=== PATIENT | male | born 1960 | race Caucasian/White ===

== ENCOUNTER → 2017-06-24 | Outpatient (CLI) | payer MEDICARE ==
[2017-06-24 12:23] LABS: ADD MAN DIFF? NO
[2017-06-24 12:28] LABS: BASO # 0.1 x10^3/uL (0.0-0.2); BASO % 1 % (0-3); EOS # 0.1 x10^3/uL (0.0-0.7); EOS % 1 % (0-3); HEMATOCRIT 45.8 % (39.0-53.0); HEMOGLOBIN 15.9 g/dL (13.0-17.5); LYMPH # 2.2 x10^3/uL (1.0-4.8); LYMPH % 21 % (24-48); MEAN CORPUSCULAR HEMOGLOBIN 36 pg (25-35); MEAN CORPUSCULAR HGB CONC 35 g/dL (31-37); MEAN CORPUSCULAR VOLUME 104 fL (79-100); MONO # 0.8 x10^3/uL (0.0-1.1); MONO % 8 % (0-9); NEUT # 7.5 x10^3uL (1.8-7.7); NEUT % 70 % (31-73); PLATELET COUNT 213 x10^3/uL (140-400); RED BLOOD COUNT 4.41 x10^6/uL (4.30-5.70); WHITE BLOOD COUNT 10.7 x10^3/uL (4.0-11.0)
[2017-06-24 12:58] LABS: ALBUMIN 3.4 g/dL (3.4-5.0); ALBUMIN/GLOBULIN RATIO 0.9 (1.0-1.7); ALK PHOS 81 U/L (46-116); ALT (SGPT) 50 U/L (16-63); ANION GAP 13 (6-14); AST (SGOT) 26 U/L (15-37); BLOOD UREA NITROGEN 19 mg/dL (8-26); BUN/CREATININE RATIO 15 (6-20); CARBON DIOXIDE 22 mmol/L (21-32); CHLORIDE 99 mmol/L (98-107); CREATININE 1.3 mg/dL (0.7-1.3); GFR 57.3; GLUCOSE 255 mg/dL (70-99); POTASSIUM 4.2 mmol/L (3.5-5.1); SODIUM 134 mmol/L (136-145); TOTAL BILIRUBIN 0.3 mg/dL (0.2-1.0); TOTAL PROTEIN 7.3 g/dL (6.4-8.2)
[2017-06-24 13:02] LABS: PROSTATE SPECIFIC ANTIGEN 2.62 ng/mL (0.00-4.00)
[2017-06-24 20:10] LABS: FSH 13.1 mIU/mL (1.5-12.4); LUTEINIZING HORMONE 17.2 mIU/mL (1.7-8.6)
[2017-06-24 20:10] LABS: ESTRADIOL LEVEL 27.8 pg/mL (7.6-42.6)
== END | disposition home or self-care (01) ==
LOC: LAB 12:05
DX: Z12.5 Encounter for screening for malignant neoplasm of prostate (principal); E29.1 Testicular hypofunction; Z57.2 Occupational exposure to dust
CPT/HCPCS: 36415; 80053; 82670; 83001; 83002; 85025; G0103

== ENCOUNTER 2017-12-19 09:15 | Emergency (ER) | payer MEDICARE ==
[~2017-12-19] VITALS: Ht 188 cm; Wt 117.9 kg
[~2017-12-19 09:15] MED LIST: ATOR10TA PO; CLOZ100T7 PO; METF500T5 PO; PIOG15TA42 PO
[2017-12-19 09:20] VITALS: BP 152/85
--- NOTE | 2017-12-19 09:42 | PHYS DOC ---
Past Medical History Past Medical History: Diabetes-Type II, High Cholesterol, Hypertension, Other Additional Past Medical Histor: MENTAL ILLNESS Past Surgical History: No Surgical History Alcohol Use: None Drug Use: None Adult General Chief Complaint Chief Complaint: SWALLOWED FORIEGN BODY HPI HPI Patient is a 57 year old [male presenting with an esophageal foreign body. He said that he had some hot dog at 4 AM he felt it get stuck that he ate some cookies and thus got stuck and he had some yogurt and some banana and that also got stuck. He is tolerating lemonade just fine. He said that he had an esophageal what sounds most likely like a esophageal dilation at [employer] in july Review of Systems Review of Systems Constitutional: Denies fever or chills [] Eyes: Denies change in visual acuity, redness, or eye pain [] Cardiovascular: No additional information not addressed in HPI [] GI: Denies abdominal pain, , Neurologic: Denies headache, focal weakness or sensory changes [] Endocrine: Denies polyuria or polydipsia [] All other systems were reviewed and found to be within normal limits, except as documented in this note. Current Medications Current Medications Current Medications Medications (Trade) Dose Ordered Sig/Duane Start Time Stop Time Status Last Admin Dose Admin Glucagon (Glucagen) 1 mg 1X ONCE 12/19/17 10:00 12/19/17 10:01 DC 12/19/17 10:01 1 MG Lorazepam (Ativan) 1 mg 1X ONCE 12/19/17 10:00 12/19/17 10:01 DC 12/19/17 09:58 1 MG Ondansetron HCl (Zofran) 4 mg 1X ONCE 12/19/17 10:00 12/19/17 10:01 DC 12/19/17 09:55 4 MG Allergies Allergies Allergies Coded Allergies Type Severity Reaction Last Updated Verified Antihistamines - Alkylamine Allergy Intermediate 10/02/14 No Physical Exam Physical Exam Constitutional: Well developed, well nourished, no acute distress, non-toxic appearance. [] HENT: Normocephalic, atraumatic, bilateral external ears normal, oropharynx moist, no oral exudates, nose normal. [] Eyes: PERRLA, EOMI, conjunctiva normal, no discharge. [] Neck: Normal range of motion, no tenderness, supple, no stridor. [] Pulmonary: Normal respiratory effort no increased work of breathing no obvious chest wall trauma Abdomen: Bowel sounds normal, soft, no tenderness, no masses, no pulsatile masses. [] Skin: Warm, dry, no erythema, no rash. [] Back: No tenderness, no CVA tenderness. [] Extremities: No tenderness, no cyanosis, no clubbing, ROM intact, no edema. [] Neurologic: Alert and oriented X 3, normal motor function, normal sensory function, no focal deficits noted. [] Psychologic blunted affect[] Current Patient Data Vital Signs Vital Signs Date Time Temp Pulse Resp B/P (MAP) Pulse Ox O2 Delivery O2 Flow Rate FiO2 12/19/17 09:20 98.3 98 18 152/85 (107) 96 Room Air 98.3 Lab Values Laboratory Tests Test 12/19/17 09:43 White Blood Count 10.4 x10^3/uL (4.0-11.0) Red Blood Count 4.72 x10^6/uL (4.30-5.70) Hemoglobin 17.0 g/dL (13.0-17.5) Hematocrit 48.4 % (39.0-53.0) Mean Corpuscular Volume 103 fL (79-100) H Mean Corpuscular Hemoglobin 36 pg (25-35) H Mean Corpuscular Hemoglobin Concent 35 g/dL (31-37) Red Cell Distribution Width 13.5 % (11.5-14.5) Platelet Count 264 x10^3/uL (140-400) Neutrophils (%) (Auto) 70 % (31-73) Lymphocytes (%) (Auto) 22 % (24-48) L Monocytes (%) (Auto) 7 % (0-9) Eosinophils (%) (Auto) 1 % (0-3) Basophils (%) (Auto) 1 % (0-3) Neutrophils # (Auto) 7.2 x10^3uL (1.8-7.7) Lymphocytes # (Auto) 2.2 x10^3/uL (1.0-4.8) Monocytes # (Auto) 0.7 x10^3/uL (0.0-1.1) Eosinophils # (Auto) 0.1 x10^3/uL (0.0-0.7) Basophils # (Auto) 0.1 x10^3/uL (0.0-0.2) Prothrombin Time 12.2 SEC (11.7-14.0) Prothrombin Time INR 1.0 (0.8-1.1) Sodium Level 131 mmol/L (136-145) L Potassium Level 4.6 mmol/L (3.5-5.1) Chloride Level 96 mmol/L (98-107) L Carbon Dioxide Level 29 mmol/L (21-32) Anion Gap 6 (6-14) Blood Urea Nitrogen 19 mg/dL (8-26) Creatinine 1.2 mg/dL (0.7-1.3) Estimated GFR (Cockcroft-Gault) 62.6 BUN/Creatinine Ratio 16 (6-20) Glucose Level 219 mg/dL (70-99) H Calcium Level 9.6 mg/dL (8.5-10.1) Total Bilirubin 0.3 mg/dL (0.2-1.0) Aspartate Amino Transferase (AST) 45 U/L (15-37) H Alanine Aminotransferase (ALT) 100 U/L (16-63) H Alkaline Phosphatase 80 U/L (46-116) Total Protein 6.9 g/dL (6.4-8.2) Albumin 3.5 g/dL (3.4-5.0) Albumin/Globulin Ratio 1.0 (1.0-1.7) Laboratory Tests 12/19/17 09:43 Laboratory Tests 12/19/17 09:43 EKG EKG [] Radiology/Procedures Radiology/Procedures [] Course & Med Decision Making Course & Med Decision Making Pertinent Labs and Imaging studies reviewed. (See chart for details) []57-year-old male with a prior history of apparently some sort of esophageal procedure back in July sounds like maybe a dilation but it was done at an outside facility also psychiatric history who is presenting with chief complaint of he feels like a hot dog was stuck in his esophagus however he did also subsequently it yogurt and banana and he has been tolerating liquids. In the emergency room he was given glucagon and Zofran and a milligram of Ativan and he said the sensation went away he is able to take by mouth liquids he will be discharged in stable condition he was advised to follow-up with his primary GI team for further evaluation. He was counseled on dietary considerations including soft diet for the next couple of days Dragon Disclaimer Victoriano Disclaimer This electronic medical record was generated, in whole or in part, using a voice recognition dictation system. Departure Departure Impression: Primary Impression: Esophageal foreign body Disposition: 01 HOME, SELF-CARE Condition: STABLE Referrals: JAIME MONACO MD (PCP) FRANK TAVERA MD Dec 19, 2017 09:42
[2017-12-19 09:56] LABS: BASO # 0.1 x10^3/uL (0.0-0.2); BASO % 1 % (0-3); EOS # 0.1 x10^3/uL (0.0-0.7); EOS % 1 % (0-3); HEMATOCRIT 48.4 % (39.0-53.0); LYMPH # 2.2 x10^3/uL (1.0-4.8); LYMPH % 22 % (24-48); MEAN CORPUSCULAR HEMOGLOBIN 36 pg (25-35); MEAN CORPUSCULAR HGB CONC 35 g/dL (31-37); MEAN CORPUSCULAR VOLUME 103 fL (79-100); MONO # 0.7 x10^3/uL (0.0-1.1); MONO % 7 % (0-9); NEUT # 7.2 x10^3uL (1.8-7.7); NEUT % 70 % (31-73); PLATELET COUNT 264 x10^3/uL (140-400); RED BLOOD COUNT 4.72 x10^6/uL (4.30-5.70); RED CELL DISTRIBUTION WIDTH 13.5 % (11.5-14.5); WHITE BLOOD COUNT 10.4 x10^3/uL (4.0-11.0)
[2017-12-19] MEDS ORDERED: GLUCAGON,HUMAN RECOMBINANT 1 MG/ML VIAL. IV ONE (10:00)
[2017-12-19] MEDS ORDERED: ONDANSETRON PF 4 MG/2 ML VIAL. IV ONE (10:00)
[2017-12-19 10:05] LABS: PROTHROMBIN TIME PATIENT 12.2 SEC (11.7-14.0)
[2017-12-19 10:09] LABS: CALCIUM 9.6 mg/dL (8.5-10.1); CREATININE 1.2 mg/dL (0.7-1.3); GFR 62.6; POTASSIUM 4.6 mmol/L (3.5-5.1)
[2017-12-19 10:15] LABS: ALBUMIN 3.5 g/dL (3.4-5.0); TOTAL BILIRUBIN 0.3 mg/dL (0.2-1.0); TOTAL PROTEIN 6.9 g/dL (6.4-8.2)
== END 2017-12-19 11:03 | disposition home or self-care (01) ==
LOC: ER 09:15
DX: T18.128A Food in esophagus causing other injury, initial encounter (principal); E11.9 Type 2 diabetes mellitus without complications; E78.00 Pure hypercholesterolemia, unspecified; I10 Essential (primary) hypertension; Z88.8 Allergy status to other drugs, medicaments and biological substances; X58.XXXA Exposure to other specified factors, initial encounter; Y93.89 Activity, other specified; Y92.89 Other specified places as the place of occurrence of the external cause; Y99.8 Other external cause status
CPT/HCPCS: 36415; 80053; 85025; 85610; 96374; 96375; J1610; J2060; J2405; 99284-25

== ENCOUNTER 2017-12-20 01:36 | Emergency (ER) | payer MEDICARE ==
[~2017-12-20] VITALS: Ht 188 cm; Wt 117.9 kg
[2017-12-20 01:50] VITALS: BP 158/78
--- NOTE | 2017-12-20 02:29 | PHYS DOC ---
Past Medical History Past Medical History: Diabetes-Type II, High Cholesterol, Hypertension, Other Additional Past Medical Histor: MENTAL ILLNESS Past Surgical History: No Surgical History Alcohol Use: None Drug Use: None Adult General Chief Complaint Chief Complaint: DIFFICULTY SWALLOWING HPI HPI Patient is a 57-year-old male who presents with report that he thinks that he had some food stuck in his esophagus. Patient was eating Rice Krispies at about 1:00 this morning and states it feels like it is stuck. Patient has not tried to eat or drink anything since. Patient does indicate he has a history of esophageal food bolus being toxic and has had to have endoscopy in the past. He denies any chest pain or shortness of breath. He also denies any nausea or vomiting. Review of Systems Review of Systems Constitutional: Denies fever or chills [] Respiratory: Denies cough or shortness of breath [] Cardiovascular: Denies chest pain[] GI: Reports difficulty swallowing[] All other systems were reviewed and found to be within normal limits, except as documented in this note. Allergies Allergies Allergies Coded Allergies Type Severity Reaction Last Updated Verified Antihistamines - Alkylamine Allergy Intermediate 10/02/14 No Physical Exam Physical Exam Constitutional: Well developed, well nourished, no acute distress, non-toxic appearance. [] HENT: Normocephalic, atraumatic, bilateral external ears normal, oropharynx moist, no oral exudates, nose normal. [] Eyes: PERRLA, EOMI, conjunctiva normal, no discharge. [] Neck: Normal range of motion, no tenderness, supple, no stridor. [] Cardiovascular:Heart rate regular rhythm [] Lungs & Thorax: Bilateral breath sounds clear to auscultation [] Abdomen: Bowel sounds normal, soft, no tenderness. [] Skin: Warm, dry, no erythema, no rash. [] EKG EKG [] Radiology/Procedures Radiology/Procedures [] Course & Med Decision Making Course & Med Decision Making Pertinent Labs and Imaging studies reviewed. (See chart for details) Patient given Diet Coke and was able to swallow entire can of diet Coke without difficulty. Dragon Disclaimer Dragon Disclaimer This electronic medical record was generated, in whole or in part, using a voice recognition dictation system. Departure Departure Impression: Primary Impression: Difficulty swallowing Disposition: 01 HOME, SELF-CARE Condition: STABLE Referrals: TREVER URENA MD (PCP) Patient Instructions: Dysphagia Additional Instructions: Follow-up with your primary care provider in the next few days. Problem Qualifiers Primary Impression: Difficulty swallowing Dysphagia type: unspecified Qualified Codes: R13.10 - Dysphagia, unspecified JOSHUA DOUGLASS Jr. DO Dec 20, 2017 02:29
[2017-12-21] MEDS ORDERED: ZIPR80CA2 PO (03:47)
[2017-12-21] MEDS ORDERED: LISI10TA2 PO (03:47)
[2017-12-21] MEDS ORDERED: TAMS0.4C97 PO (03:47)
[2017-12-21] MEDS ORDERED: GLIM4TAB2 PO (03:47)
== END 2017-12-20 02:35 | disposition home or self-care (01) ==
LOC: ER 01:36
DX: T18.128A Food in esophagus causing other injury, initial encounter (principal); R13.10 Dysphagia, unspecified; E78.00 Pure hypercholesterolemia, unspecified; I10 Essential (primary) hypertension; E11.9 Type 2 diabetes mellitus without complications; Z88.8 Allergy status to other drugs, medicaments and biological substances; X58.XXXA Exposure to other specified factors, initial encounter; Y93.89 Activity, other specified; Y92.89 Other specified places as the place of occurrence of the external cause; Y99.8 Other external cause status
CPT/HCPCS: 99281

== ENCOUNTER 2017-12-20 07:29 | Emergency (ER) | payer MEDICARE ==
[2017-12-20 01:50] VITALS: BP 158/78
[2017-12-21] MEDS ORDERED: TAMS0.4C97 PO (03:47)
[2017-12-21] MEDS ORDERED: ZIPR80CA2 PO (03:47)
[2017-12-21] MEDS ORDERED: LISI10TA2 PO (03:47)
[2017-12-21] MEDS ORDERED: GLIM4TAB2 PO (03:47)
== END 2017-12-20 07:42 | disposition left against medical advice (07) ==
LOC: ER 07:29
DX: T17.908A Unspecified foreign body in respiratory tract, part unspecified causing other injury, initial encounter (principal); Z53.21 Procedure and treatment not carried out due to patient leaving prior to being seen by health care provider; X58.XXXA Exposure to other specified factors, initial encounter; Y93.89 Activity, other specified; Y92.89 Other specified places as the place of occurrence of the external cause; Y99.8 Other external cause status

== ENCOUNTER 2017-12-20 08:27 | Emergency (ER) | payer MEDICARE ==
[~2017-12-20] VITALS: Ht 177.8 cm; Wt 117.9 kg
[2017-12-20 09:15] VITALS: BP 137/71
--- NOTE | 2017-12-20 09:58 | PHYS DOC ---
Past Medical History Past Medical History: Bipolar, Diabetes-Type II, High Cholesterol, Hypertension , Other Additional Past Medical Histor: MENTAL ILLNESS Past Surgical History: No Surgical History Alcohol Use: None Drug Use: None Adult General Chief Complaint Chief Complaint: ANXIETY/PANIC ATTACK HPI HPI 57-year-old male returns to ER with complaints of concerns he has hot dog stuck in his throat. Patient was seen in the ER yesterday for possible food bolus and was able to drink without difficulty. Patient states he ate last night and again this morning. Patient states he had cereal and pizza today and was able to eat the pizza without any nausea or vomiting. Patient has history of bipolar and autism and during exam changes his story as to symptoms bringing him to the ER. Patient discusses his acid reflux medicine not working for him as well as feeling he has a hot dog stuck in his throat from yesterday. Patient denies any shortness of air, chest pain, or chest tightness. He denies any vomiting episodes today following meals. Pt states he was able to take his morning medications swallowing the pills without vomiting afterwards. During initial exam pt is speaking in full sentences w/no resp. difficulty. Pt has no pooling of secretions and is swallowing without difficultly. Review of Systems Review of Systems Constitutional: Denies fever or chills [] Eyes: Denies change in visual acuity, redness, or eye pain [] HENT: Reports feeling "hot dog is stuck in throat" Respiratory: Denies cough or shortness of breath [] Cardiovascular: Denies CP GI: Denies abdominal pain, nausea, vomiting, or diarrhea [] Musculoskeletal: Denies neck pain Integument: Denies swelling Neurologic: Denies headache/dizziness Psych: Reports feeling anxious All other systems were reviewed and found to be within normal limits, except as documented in this note. Current Medications Current Medications Current Medications Medications (Trade) Dose Ordered Sig/Duane Start Time Stop Time Status Last Admin Dose Admin Lorazepam (Ativan) 1 mg 1X ONCE 12/20/17 10:45 12/20/17 10:46 DC 12/20/17 10:44 1 MG Multi-Ingredient Mouthwash/Gargle (Gi Cocktail) 20 ml 1X ONCE 12/20/17 10:00 12/20/17 10:01 DC 12/20/17 10:04 20 ML Allergies Allergies Allergies Coded Allergies Type Severity Reaction Last Updated Verified Antihistamines - Alkylamine Allergy Intermediate 10/02/14 No Physical Exam Physical Exam Constitutional: Well developed, well nourished, no acute distress, non-toxic appearance.Speaking in full sentences- clear speech HENT: Normocephalic, atraumatic, bilateral ears normal, mucous membranes pink/ moist, no oral exudates, nose normal. Airway patent with no FB found in throat. No crepitus/gross adenopathy Eyes: PERRLA, conjunctiva normal, no discharge. [] Neck: Normal range of motion, no tenderness, supple Cardiovascular:Heart rate regular rhythm, no murmur [] Lungs & Thorax: Bilateral breath sounds clear to auscultation. Resp. equal/ nonlabored Abdomen: Bowel sounds normal, soft, no tenderness Skin: Warm, dry, no erythema, no rash. [] Back: No tenderness, no CVA tenderness. [] Extremities: No tenderness, no cyanosis, no clubbing, ROM intact, no edema. [] Neurologic: Alert and oriented X 3, normal motor function, normal sensory function, no focal deficits noted. [] Psychologic: Anxious when discussing concerns for hot dog being stuck in his throat- no uncontrollable behavior- explanation of events at times hard to follow with pt changing his story as to what he had eaten yest/today and then reporting he had been eating/swallowing Current Patient Data Vital Signs Vital Signs Date Time Temp Pulse Resp B/P (MAP) Pulse Ox O2 Delivery O2 Flow Rate FiO2 12/20/17 09:15 99.3 106 18 137/71 (93) 96 Room Air 99.3 EKG EKG [] Radiology/Procedures Radiology/Procedures [] Course & Med Decision Making Course & Med Decision Making 1039: RN reports pt is requesting discharge home as he feels his symptoms have improved with IM ativan and GI cocktail. Pt has been drinking while in ER with no pooling of secretions or N/V. Pt has been speaking in full sentences with no resp. distress. Pt advised on need for f/u with GI doctor. Education provided on s&s to return to ER for. Discharge instructions were discussed. Pt advised on need to f/u with psychologist and GI doctor for further care. Discharge instructions discussed with education on s&s to return to ER for. Victoriano Disclaimer Dragflorian Disclaimer This electronic medical record was generated, in whole or in part, using a voice recognition dictation system. Departure Departure Impression: Primary Impression: Anxiety Additional Impressions: Throat pain Acid reflux Disposition: 01 HOME, SELF-CARE Condition: STABLE Referrals: TREVER URENA MD (PCP) Patient Instructions: Anxiety and Panic Attacks, Adel-tz-Glus, Gastroesophageal Reflux Disease, Adult Additional Instructions: You have been eating and drinking with no vomiting or pooling of secretions. With your continued feeling of something in your throat you should have a follow -up with your Gastrointestinal (GI) doctor to further evaluate your symptoms. Problem Qualifiers DAWN PALMER APRN Dec 20, 2017 09:58
[2017-12-20] MEDS ORDERED: LIDO:MAALOX 1:1 20 ML SINGLE DOSE. SWSW ONE (10:00)
[2017-12-21] MEDS ORDERED: TAMS0.4C97 PO (03:47)
[2017-12-21] MEDS ORDERED: LISI10TA2 PO (03:47)
[2017-12-21] MEDS ORDERED: ZIPR80CA2 PO (03:47)
[2017-12-21] MEDS ORDERED: GLIM4TAB2 PO (03:47)
== END 2017-12-20 11:00 | disposition home or self-care (01) ==
LOC: ER 08:27
DX: F41.9 Anxiety disorder, unspecified (principal); R07.0 Pain in throat; K21.9 Gastro-esophageal reflux disease without esophagitis; E11.9 Type 2 diabetes mellitus without complications; F31.9 Bipolar disorder, unspecified; E78.00 Pure hypercholesterolemia, unspecified; I10 Essential (primary) hypertension; Z88.8 Allergy status to other drugs, medicaments and biological substances
CPT/HCPCS: 96372; 99284; J2060

== ENCOUNTER 2017-12-21 01:32 | Observation (INO) | payer MEDICARE ==
[~2017-12-21] VITALS: Ht 188 cm; Wt 125.0 kg
--- NOTE | 2017-12-21 01:48 | PHYS DOC ---
Past Medical History Past Medical History: Bipolar, Diabetes-Type II, High Cholesterol, Hypertension , Other Additional Past Medical Histor: MENTAL ILLNESS Past Surgical History: No Surgical History Alcohol Use: None Drug Use: None Adult General Chief Complaint Chief Complaint: FOREIGN BODY HPI HPI Patient is a 57 year old male who presents with globus sensation. The patient states he was eating a can of pain about 30 minutes prior to presentation. He had sudden onset that part of the meat was stuck in his esophagus. He did not have any vomiting. He has been able to tolerate some fluids. The patient relates that he had some procedure done on his esophagus earlier this year. He cannot be more specific. Sounds as though he likely had a stricture or some other issue that was treated at an outlying hospital. He has been to the emergency department 3 times in the last 5 days with this complaint. On the first visit, he was given glucagon and Zofran and Ativan and his symptoms resolved. There was an additional visit when he was simply given a can of Coca- Cola. This also resolved his symptoms. Review of Systems Review of Systems Constitutional: Denies fever or chills Eyes: Denies change in visual acuity HENT: Denies nasal congestion Respiratory: Denies cough or shortness of breath Cardiovascular: No additional information not addressed in HPI GI: Denies abdominal pain, nausea, vomiting : Denies dysuria Musculoskeletal: Denies back pain Integument: Denies rash Neurologic: Denies headache Endocrine: Denies polyuria All other systems were reviewed and found to be within normal limits, except as documented in this note. Current Medications Current Medications Current Medications Medications (Trade) Dose Ordered Sig/Duane Start Time Stop Time Status Last Admin Dose Admin Fentanyl Citrate (Fentanyl 2ml Vial) 50 mcg PRN Q2HR PRN 12/21/17 02:00 12/22/17 01:59 UNV Glucagon (Glucagen) 1 mg 1X ONCE 12/21/17 02:00 12/21/17 02:01 DC Lorazepam (Ativan) 0.5 mg 1X ONCE 12/21/17 02:00 12/21/17 02:01 DC Ondansetron HCl (Zofran) 4 mg PRN Q8HRS PRN 12/21/17 02:00 12/22/17 01:59 UNV Sodium Chloride 1,000 ml @ 100 mls/hr Q10H 12/21/17 01:56 12/22/17 01:55 UNV Allergies Allergies Allergies Coded Allergies Type Severity Reaction Last Updated Verified Antihistamines - Alkylamine Allergy Intermediate 10/02/14 No Physical Exam Physical Exam Constitutional: Well developed, well nourished, no acute distress HENT: Normocephalic, atraumatic, bilateral external ears normal, oropharynx moist Eyes: PERRLA, EOMI, conjunctiva normal, no discharge Neck: Normal range of motion Cardiovascular:Heart rate regular rhythm, no murmur Lungs & Thorax: Bilateral breath sounds clear to auscultation Abdomen: Bowel sounds normal, soft, no tenderness Skin: Warm, dry, no erythema, no rash Extremities: No edema Neurologic: Alert and oriented X 3 Psychologic: Affect normal Current Patient Data Vital Signs Vital Signs Date Time Temp Pulse Resp B/P (MAP) Pulse Ox O2 Delivery O2 Flow Rate FiO2 12/21/17 01:36 98.1 104 18 146/87 (106) 97 Room Air 98.1 Lab Values Laboratory Tests Test 12/21/17 01:43 White Blood Count 10.3 x10^3/uL (4.0-11.0) Red Blood Count 4.48 x10^6/uL (4.30-5.70) Hemoglobin 16.2 g/dL (13.0-17.5) Hematocrit 46.9 % (39.0-53.0) Mean Corpuscular Volume 105 fL (79-100) H Mean Corpuscular Hemoglobin 36 pg (25-35) H Mean Corpuscular Hemoglobin Concent 35 g/dL (31-37) Red Cell Distribution Width 13.6 % (11.5-14.5) Platelet Count 240 x10^3/uL (140-400) Neutrophils (%) (Auto) 76 % (31-73) H Lymphocytes (%) (Auto) 17 % (24-48) L Monocytes (%) (Auto) 6 % (0-9) Eosinophils (%) (Auto) 1 % (0-3) Basophils (%) (Auto) 1 % (0-3) Neutrophils # (Auto) 7.8 x10^3uL (1.8-7.7) H Lymphocytes # (Auto) 1.8 x10^3/uL (1.0-4.8) Monocytes # (Auto) 0.6 x10^3/uL (0.0-1.1) Eosinophils # (Auto) 0.1 x10^3/uL (0.0-0.7) Basophils # (Auto) 0.1 x10^3/uL (0.0-0.2) Laboratory Tests 12/21/17 01:43 EKG EKG [] Radiology/Procedures Radiology/Procedures [] Course & Med Decision Making Course & Med Decision Making Pertinent Labs and Imaging studies reviewed. (See chart for details) Patient is seen immediately on arrival. No acute distress. His sx had previously been relieved simply by drinking soda. Will attempt this initially this evening. 02:15: Patient was given a full size coca cola and was able to tolerate but the food bolus sensation was not relieved. Patient has four ER visits in as many days for the same complaint. Plan this evening is to admit and request inpatient GI consultation. Patient is agreeable. He already had labs completed earlier this week without acute abnormality so no labs this visit. Bridge orders placed. NPO status. IVF's. Dragon Disclaimer Victoriano Disclaimer This electronic medical record was generated, in whole or in part, using a voice recognition dictation system. Departure Departure Referrals: TREVER URENA MD (PCP) KAVYA GIBSON DO Dec 21, 2017 01:48
[2017-12-21] MEDS ORDERED: fentaNYL PF VIAL 100 MCG/2 ML VIAL IV PRN (02:00)
[2017-12-21] MEDS ORDERED: ONDANSETRON PF 4 MG/2 ML VIAL. IV ONE (02:00)
[2017-12-21] MEDS ORDERED: ONDANSETRON PF 4 MG/2 ML VIAL. IV PRN (02:00)
[2017-12-21] MEDS ORDERED: GLUCAGON,HUMAN RECOMBINANT 1 MG/ML VIAL. IV ONE (02:00)
[2017-12-21 02:11] LABS: BASO # 0.1 x10^3/uL (0.0-0.2); BASO % 1 % (0-3); EOS # 0.1 x10^3/uL (0.0-0.7); EOS % 1 % (0-3); HEMATOCRIT 46.9 % (39.0-53.0); HEMOGLOBIN 16.2 g/dL (13.0-17.5); LYMPH # 1.8 x10^3/uL (1.0-4.8); LYMPH % 17 % (24-48); MEAN CORPUSCULAR HEMOGLOBIN 36 pg (25-35); MEAN CORPUSCULAR HGB CONC 35 g/dL (31-37); MEAN CORPUSCULAR VOLUME 105 fL (79-100); MONO # 0.6 x10^3/uL (0.0-1.1); MONO % 6 % (0-9); NEUT # 7.8 x10^3uL (1.8-7.7); NEUT % 76 % (31-73); PLATELET COUNT 240 x10^3/uL (140-400); RED BLOOD COUNT 4.48 x10^6/uL (4.30-5.70); RED CELL DISTRIBUTION WIDTH 13.6 % (11.5-14.5); WHITE BLOOD COUNT 10.3 x10^3/uL (4.0-11.0)
--- NOTE | 2017-12-21 03:19 | RAD ---
CHEST PA LATERAL, NECK SOFT TISSUE History: POSSIBLE ESOPHAGEAL FB Comparison: None. Findings: Posterior costophrenic sulci are excluded on the lateral view. Tortuous thoracic aorta. Cardiac size upper limits of normal. Pulmonary vasculature is normal. The lungs are clear. No pleural effusion or pneumothorax is seen. There is no acute bone abnormality. The prevertebral soft tissues are normal. The epiglottis is normal. No radiopaque foreign body is identified. There is degenerative spondylosis of the cervical spine. IMPRESSION: No radiopaque foreign body is identified. Electronically signed by: Kristopher Mariano MD (12/21/2017 3:16 AM) [facility]
[2017-12-21] MEDS: IV NORMAL SALINE 1000ML BAG 1,000 ML IV SCH ×2 (03:32→10:46)
[2017-12-21] MEDS ORDERED: GLIM4TAB2 PO (03:47)
[2017-12-21] MEDS ORDERED: ZIPR80CA2 PO (03:47)
[2017-12-21] MEDS ORDERED: TAMS0.4C97 PO (03:47)
[2017-12-21] MEDS ORDERED: LISI10TA2 PO (03:47)
[2017-12-21 03:55] VITALS: BP 111/65
[2017-12-21 07:00] VITALS: BP 112/70
--- NOTE | 2017-12-21 10:14 | PDOC2 ---
GI CONSULT Reason For Consult: Worsening globus, multiple ED visits HPI: HPI: 57 y/o male who came to the ER 4 times during the period of 12/19/17 to 12/21, now admitted. History difficult. Tells me h/o dysphagia and globus since 02/2017 - worse for a couple weeks w/ solid food getting caught in oropharynx (names pizza and chicken - currently spam). ER notes indicate symptoms improved w/ glucagon, Zofran, Ativan, then improved w / Coke, and then he requested to be discharged (the third time). Past workup: he reports two EGDs @ [facility] in and July of this year - says one showed stomach ulcers and one showed thrush. He denies esophageal narrowing /stricture but says had esophageal dilation. He was told to take a pill for GERD (maybe pantoprazole - he wakes up at midnight and takes this at 2:00 a.m. before eating breakfast). He says that nothing has helped dysphagia. He stopped following-up with GI @ [facility] and started praying about it. Denies reflux, odynophagia, n/v, abd pain, diarrhea, bleeding. Has gained 10 pounds. Takes Metamucil for constipation w/ improvement. Reports normal colonoscopy 1 year ago. No GB, liver, or pancreas history. He still feels like Spam is stuck in his throat. He appears to be tolerating his own secretions but cannot answer this question when I ask. PMH: PMH: per chart - HTN, HLD, DM, GERD, dysphagia, bipolar, OA Social History: Smoke: No ALCOHOL: none Drugs: None ROS: GEN: Denies fevers, chills, sweats HEENT: Denies blurred vision, sore throat CV: Denies chest pain RESP: Denies shortness of air, cough GI: Per HPI : Denies hematuria, dysuria ENDO: +weight gain NEURO: Denies confusion, dizziness MSK: Denies weakness, joint pain/swelling SKIN: Denies jaundice, pruritus Vitals: Vitals: Vital Signs Date Time Temp Pulse Resp B/P (MAP) Pulse Ox O2 Delivery O2 Flow Rate FiO2 12/21/17 07:00 98.5 94 20 112/70 (84) 97 Room Air 98.5 Labs: Labs: Laboratory Tests Test 12/21/17 01:43 8/27/18 04:36 12/21/17 07:34 White Blood Count 10.3 x10^3/uL (4.0-11.0) Red Blood Count 4.48 x10^6/uL (4.30-5.70) Hemoglobin 16.2 g/dL (13.0-17.5) Hematocrit 46.9 % (39.0-53.0) Mean Corpuscular Volume 105 fL (79-100) Mean Corpuscular Hemoglobin 36 pg (25-35) Mean Corpuscular Hemoglobin Concent 35 g/dL (31-37) Red Cell Distribution Width 13.6 % (11.5-14.5) Platelet Count 240 x10^3/uL (140-400) Neutrophils (%) (Auto) 76 % (31-73) Lymphocytes (%) (Auto) 17 % (24-48) Monocytes (%) (Auto) 6 % (0-9) Eosinophils (%) (Auto) 1 % (0-3) Basophils (%) (Auto) 1 % (0-3) Neutrophils # (Auto) 7.8 x10^3uL (1.8-7.7) Lymphocytes # (Auto) 1.8 x10^3/uL (1.0-4.8) Monocytes # (Auto) 0.6 x10^3/uL (0.0-1.1) Eosinophils # (Auto) 0.1 x10^3/uL (0.0-0.7) Basophils # (Auto) 0.1 x10^3/uL (0.0-0.2) Glucose (Fingerstick) 195 mg/dL (70-99) 134 mg/dL (70-99) Allergies: Coded Allergies: Antihistamines - Alkylamine (Unverified Allergy, Intermediate, 10/02/14) Medications: Current Medications Medications (Trade) Dose Ordered Sig/Duane Route PRN Reason Start Time Stop Time Status Last Admin Dose Admin Ondansetron HCl (Zofran) 4 mg 1X ONCE IV 12/21/17 02:00 12/21/17 02:01 DC 12/21/17 02:22 Lorazepam (Ativan) 0.5 mg 1X ONCE IV 12/21/17 02:00 12/21/17 02:01 DC 12/21/17 02:22 Glucagon (Glucagen) 1 mg 1X ONCE IV 12/21/17 02:00 12/21/17 02:01 DC 12/21/17 02:22 Sodium Chloride 1,000 ml @ 100 mls/hr Q10H IV 12/21/17 02:00 12/22/17 01:59 12/21/17 03:32 Imaging: Imaging: Soft Tissue Neck X-Ray IMPRESSION: No radiopaque foreign body is identified. CXR IMPRESSION: No radiopaque foreign body is identified. PE: GEN: NAD HEENT: Atraumatic, PERRL LUNGS: CTAB HEART: RRR ABD: NABS, S/NT, round, ?distention EXTREMITY: No edema SKIN: No rashes, no jaundice NEURO/PSYCH: A & O 3 A/P: A/P: Chronic dysphagia ?GERD Psych issues CRC screen - reports normal colonoscopy last year Macrocytosis -- Dysphagia issues since 02/2017 - seems worse recently, repeated ER visits this weekend, apparently past workup unhelpful. Will attempt to review records of recent EGDs from [facility]. Start w/ esophagram. PPI. He is impatient for answers to this chronic problem. YELENA CLAYTON Dec 21, 2017 10:14
[2017-12-21 11:00] VITALS: BP 131/79
--- NOTE | 2017-12-21 14:11 | HP ---
ADMIT DATE: 12/21/2017 CHIEF COMPLAINT: Dysphagia. HISTORY OF PRESENT ILLNESS: The patient is a pleasant 57-year-old male with known history of dysphagia and previous esophageal strictures. Once again, he presents with difficulty swallowing. It has been worsening over the past few weeks. He has had esophageal dilatation in the past. I have discussed the case with the ER physician. We are admitting the patient with consultation to GI. I discussed the case with GI as well. They have ordered an esophogram. PAST MEDICAL HISTORY: Hypertension, hyperlipidemia, diabetes, GERD, dysphagia, bipolar, osteoarthritis and esophageal strictures. ALLERGIES: ANTIHISTAMINES. FAMILY HISTORY: Diabetes. SOCIAL HISTORY: He is a retired field service rep. Does not drink, smoke or take drugs. MEDICATIONS: Reviewed, please refer to the [facility]. REVIEW OF SYSTEMS: GENERAL: No history of weight change, weakness or fevers. SKIN: No bruising, hair changes or rashes. EYES: No blurred, double or loss of vision. NOSE AND THROAT: No history of nosebleeds, hoarseness or sore throat. HEART: No history of palpitations, chest pain or shortness of breath on exertion. LUNGS: Denies cough, hemoptysis, wheezing or shortness of breath. GASTROINTESTINAL: He complains of dysphagia. GENITOURINARY: No history of frequency, urgency, hesitancy or nocturia. NEUROLOGIC: Denies history of numbness, tingling, tremor or weakness. PSYCHIATRIC: No history of panic, anxiety or depression. ENDOCRINE: No history of heat or cold intolerance, polyuria or polydipsia. EXTREMITIES: Denies muscle weakness, joint pain, pain on walking or stiffness. PHYSICAL EXAMINATION: VITAL SIGNS: Temperature afebrile, pulse 92, respirations 18, blood pressure 146/70. GENERAL: He is alert, cooperative. HEART: Normal S1, S2. LUNGS: Clear. ABDOMEN: Soft. EXTREMITIES: No edema. SKIN: No rashes. ENDOCRINE: No thyromegaly. LYMPHATICS: No cervical nodes. HEMATOPOIETIC: No bruising. ASSESSMENT AND PLAN: Dysphagia, suspect recurrent esophageal stricture. Suspect he may need dilatation. The patient has been admitted. We consulted GI. They have ordered an esophagram. We certainly appreciate their input. For now, p.r.n. antiemetics, scheduled proton pump inhibitors, IV fluids, pain meds, home meds. Recheck his labs. PROGNOSIS: Guarded. TROY KAY DO DR: TAMIKA/desmond JOB#: [id number] / [id number]
[2017-12-21] MEDS ORDERED: BARIUM SULFATE 340 GM SUSPENSION. PO ONE (14:15)
[2017-12-21] MEDS ORDERED: BARIUM SULFATE 60% 355 ML SUSP PO ONE (14:15)
[2017-12-21] MEDS ORDERED: SIMETHICONE/SOD BICARB/CITRIC ACID PACKET. PO ONE (14:45)
[2017-12-21 15:00] VITALS: BP 125/83
--- NOTE | 2017-12-21 15:19 | RAD ---
Esophagram, 12/21/2017: HISTORY: Swallowing difficulty The patient was examined fluoroscopically while ingesting thin and thickened materials. 3.3 minutes of fluoroscopy time was utilized. 11 static and dynamic fluoroscopic sequence is were recorded. In the upright position there was normal passage of the barium through the cervical and thoracic esophagus. There are mild posterior impressions upon the cervical esophagus due to spurs. No obstructing process is evident. In the prone oblique position on the fluoroscopic table there is stasis of some of the ingested barium in the esophagus with scattered tertiary contractions. There was intermittent reflux of material from the thoracic esophagus back up into the cervical esophagus. There is a small sliding-type hiatal hernia. No gastroesophageal reflux was demonstrated. IMPRESSION: 1. No obstructing esophageal lesion is seen. 2. Abnormal esophageal peristalsis with tertiary contractions and stasis of materials in the thoracic esophagus, most evident in the prone position. 3. Small sliding-type hiatal hernia. Electronically signed by: Georgi Kelly MD (12/21/2017 3:17 PM) [facility]
== END 2017-12-21 15:50 | disposition home or self-care (01) ==
LOC: ER 01:32 → INTOOBSV 01:45 → 5 SOUTH 01:45
PROVIDERS: ADMIT Internal Medicine; ATTEND Internal Medicine
DX: R13.10 Dysphagia, unspecified (principal); I10 Essential (primary) hypertension; E78.5 Hyperlipidemia, unspecified; E11.9 Type 2 diabetes mellitus without complications; K21.9 Gastro-esophageal reflux disease without esophagitis; M19.90 Unspecified osteoarthritis, unspecified site; K44.9 Diaphragmatic hernia without obstruction or gangrene; E78.00 Pure hypercholesterolemia, unspecified; K59.00 Constipation, unspecified; Z83.3 Family history of diabetes mellitus; Z79.899 Other long term (current) drug therapy
CPT/HCPCS: 36415; 70360; 71046; 74220; 80053; 82962; 85025; 85610; 96374; 96375; 99285; G0378; J1610; J2060; J2405; J7030; G0379

== ENCOUNTER 2017-12-24 00:30 | Emergency (ER) | payer MEDICARE ==
[~2017-12-24] VITALS: Ht 188 cm; Wt 117.9 kg
[~2017-12-24 00:30] MED LIST changes: +GLIM4TAB2 PO; +LISI10TA2 PO; +METF500T16 PO; -METF500T5 PO; +TAMS0.4C97 PO; +ZIPR80CA2 PO
[2017-12-24 01:04] VITALS: BP 168/94
--- NOTE | 2017-12-24 01:52 | PHYS DOC ---
Past Medical History Past Medical History: Bipolar, Diabetes-Type II, High Cholesterol Additional Past Medical Histor: MENTAL ILLNESS Past Surgical History: Other Additional Past Surgical Histo: THROAT Alcohol Use: None Drug Use: None Adult General Chief Complaint Chief Complaint: SWALLOWED FORIEGN BODY HPI HPI Patient is a 57-year-old male who presents to the emergency department for evaluation. He states that this morning the glass he was drinking issues and broke off and there was a piece of glass that fell onto his drinking he thinks he drank it. He states he is having a foreign body sensation in his throat. He is able to swallow and drink a cup of water without any difficulty, witnessed in my presence. The patient has not had any vomiting. He denies any shortness of breath, dizziness or lightheadedness. I reviewed the patient's recent records and he has been seen in this emergency department about 5 times in the past week with similar complaints. He was hospitalized once and did see GI. Apparently he has had recent EGDs at [facility]. There is no discharge summary available, but GI recommended outpatient follow-up after a barium swallow, results of his recent tests have been reviewed. There are no alleviating or exacerbating factors to his symptoms. The patient does have a history of bipolar disorder, which may be continued beating factor to his symptoms. Review of Systems Review of Systems Constitutional: Denies fever or chills [] Eyes: Denies change in visual acuity, redness, or eye pain [] HENT: Denies nasal congestion or sore throat . Does admit to a foreign body sensation in his throat.[] Respiratory: Denies cough or shortness of breath [] Cardiovascular: The patient denies any shortness of breath, chest pain, palpitations, or orthopnea [] GI: Denies abdominal pain, nausea, vomiting, bloody stools or diarrhea [] : Denies dysuria or hematuria [] Musculoskeletal: Denies back pain or joint pain [] Integument: Denies rash or skin lesions [] Neurologic: Denies headache, focal weakness or sensory changes [] Endocrine: Denies polyuria or polydipsia [] All other systems were reviewed and found to be within normal limits, except as documented in this note. Allergies Allergies Allergies Coded Allergies Type Severity Reaction Last Updated Verified Antihistamines - Alkylamine Allergy Intermediate 10/02/14 No Physical Exam Physical Exam PHYSICAL EXAM: CONSTITUTIONAL: Well developed, well nourished HEAD: normocephalic, atraumatic EENT: PERRL, EOMI. Conjunctivae normal color, sclerae non-icteric; moist mucous membranes. The oropharynx is nonerythematous. There is no obstruction. No foreign bodies visualized. NECK: Supple, non-tender; no meningismus. LUNGS: Lungs CTA, breathing even and unlabored. Normal air movement. HEART: Regular rate and rhythm, no murmur CHEST: No deformity; non-tender ABDOMEN: The abdomen is soft, and non-tender, no masses or bruits. EXTREM: Normal ROM; no deformity, no calf tenderness. Normal pulses palpable in all extremities. There is no pedal edema. SKIN: No rash; no diaphoresis NEURO: Alert; normal speech and cognition; CN's grossly intact; strength grossly intact without focal deficit. BACK: No CVA TTP. PSYCHIATRIC: Flat affect. Current Patient Data Vital Signs Vital Signs Date Time Temp Pulse Resp B/P (MAP) Pulse Ox O2 Delivery O2 Flow Rate FiO2 12/24/17 01:04 98.6 112 18 168/94 (118) 97 Room Air 98.6 EKG EKG [] Radiology/Procedures Radiology/Procedures [ER physician preliminary neck soft tissue and acute abdominal series x-rays: No acute abnormality, no radiopaque foreign body. There is residual barium in the GI tract.] Course & Med Decision Making Course & Med Decision Making I discussed importance of outpatient GI follow-up and return precautions with the patient. I suspect his underlying mental illness but could be contributing to his recurrent ER visits for the same complaint. Dragon Disclaimer Dragon Disclaimer This electronic medical record was generated, in whole or in part, using a voice recognition dictation system. Departure Departure Impression: Primary Impression: Foreign body sensation in throat Additional Impression: Bipolar disorder Disposition: 01 HOME, SELF-CARE Condition: STABLE Referrals: TREVER URENA MD (PCP) SRINIVASA SOLIS MD Patient Instructions: Manic Depression (Bipolar Disorder), Swallowed Foreign Body, Adult Problem Qualifiers LACIE BEAN MD Dec 24, 2017 01:52
--- NOTE | 2017-12-24 03:08 | RAD ---
ACUTE ABDOMEN SERIES, NECK SOFT TISSUE Clinical Indication: PT STATES SWALLOWED GLASS, ABD PAIN Comparison: Soft tissue neck, 2 views and two-view chest December 21, 2017. Findings: No radiopaque foreign body is identified in the neck. The epiglottis, hypopharynx, and prevertebral soft tissues are normal. Mild degenerative endplate spurring of C4/C5 and C5/C6. Tortuous thoracic aorta. Cardiac size upper limits of normal. No radiopaque foreign body is seen. Mild elevation of right hemidiaphragm. Lungs are clear. No pleural abnormality. There is a paucity bowel gas, decreasing sensitivity. No obvious pneumoperitoneum. There is barium in the right colon from recent esophagram. There is stool in the ascending colon. No radiopaque foreign body is identified. No organomegaly is seen. IMPRESSION: No radiopaque foreign body is seen. Electronically signed by: Kristopher Mariano MD (12/24/2017 3:05 AM) [facility]
== END 2017-12-24 02:17 | disposition home or self-care (01) ==
LOC: ER 00:30
DX: R09.89 Other specified symptoms and signs involving the circulatory and respiratory systems (principal); F31.9 Bipolar disorder, unspecified; E78.00 Pure hypercholesterolemia, unspecified; E11.9 Type 2 diabetes mellitus without complications; Z88.8 Allergy status to other drugs, medicaments and biological substances
CPT/HCPCS: 70360; 74022; 99284

== ENCOUNTER → 2017-12-25 02:10 | Emergency (ER) | payer MEDICARE ==
[2017-12-24 01:04] VITALS: BP 168/94
== END | disposition left against medical advice (07) ==
LOC: ER 02:10
DX: T18.8XXA Foreign body in other parts of alimentary tract, initial encounter (principal); X58.XXXA Exposure to other specified factors, initial encounter; Z53.21 Procedure and treatment not carried out due to patient leaving prior to being seen by health care provider; Y93.89 Activity, other specified; Y92.89 Other specified places as the place of occurrence of the external cause; Y99.8 Other external cause status

== ENCOUNTER 2018-01-18 02:36 | Emergency (ER) | payer MEDICARE ==
[~2018-01-18] VITALS: Ht 188 cm; Wt 117.9 kg
[2018-01-18] MEDS ORDERED: SUCR1ORA5 PO (03:03)
--- NOTE | 2018-01-18 03:03 | PHYS DOC ---
Past Medical History Past Medical History: Bipolar, Diabetes-Type II, High Cholesterol Additional Past Medical Histor: MENTAL ILLNESS Past Surgical History: Other Additional Past Surgical Histo: THROAT Alcohol Use: None Drug Use: None Adult General Chief Complaint Chief Complaint: FOREIGN BODY HPI HPI Patient is a 57 year old [f__sex] who presents with [] Review of Systems Review of Systems Constitutional: Denies fever or chills [] Eyes: Denies change in visual acuity, redness, or eye pain [] HENT: Denies nasal congestion or sore throat [] Respiratory: Denies cough or shortness of breath [] Cardiovascular: No additional information not addressed in HPI [] GI: Denies abdominal pain, nausea, vomiting, bloody stools or diarrhea [] : Denies dysuria or hematuria [] Musculoskeletal: Denies back pain or joint pain [] Integument: Denies rash or skin lesions [] Neurologic: Denies headache, focal weakness or sensory changes [] Endocrine: Denies polyuria or polydipsia [] All other systems were reviewed and found to be within normal limits, except as documented in this note. Allergies Allergies Allergies Coded Allergies Type Severity Reaction Last Updated Verified Antihistamines - Alkylamine Allergy Intermediate 10/02/14 No Physical Exam Physical Exam Constitutional: Well developed, well nourished, no acute distress, non-toxic appearance. [] HENT: Normocephalic, atraumatic, bilateral external ears normal, oropharynx moist, no oral exudates, nose normal. [] Eyes: PERRLA, EOMI, conjunctiva normal, no discharge. [] Neck: Normal range of motion, no tenderness, supple, no stridor. [] Cardiovascular:Heart rate regular rhythm, no murmur [] Lungs & Thorax: Bilateral breath sounds clear to auscultation [] Abdomen: Bowel sounds normal, soft, no tenderness, no masses, no pulsatile masses. [] Skin: Warm, dry, no erythema, no rash. [] Back: No tenderness, no CVA tenderness. [] Extremities: No tenderness, no cyanosis, no clubbing, ROM intact, no edema. [] Neurologic: Alert and oriented X 3, normal motor function, normal sensory function, no focal deficits noted. [] Psychologic: Affect normal, judgement normal, mood normal. [] Current Patient Data Vital Signs Vital Signs Date Time Temp Pulse Resp B/P (MAP) Pulse Ox O2 Delivery O2 Flow Rate FiO2 01/18/18 02:41 98.4 116 20 132/72 (92) 97 Room Air 98.4 EKG EKG [] Radiology/Procedures Radiology/Procedures [] Course & Med Decision Making Course & Med Decision Making Pertinent Labs and Imaging studies reviewed. (See chart for details) [] Dragon Disclaimer Dragon Disclaimer This electronic medical record was generated, in whole or in part, using a voice recognition dictation system. Departure Departure Impression: Primary Impression: Sensation of foreign body in esophagus Disposition: HOME, SELF-CARE Condition: STABLE Referrals: TREVER URENA MD (PCP) MARIAELENA BROWN MD Patient Instructions: Esophageal Stricture, Esophagitis Scripts Sucralfate (CARAFATE) 1 Gm/10 Ml Oral.susp 10 ML PO QIDACHS, #1200 ML Prov: JAIME GARCIA DO 01/18/18 JAIME GARCIA DO Jan 18, 2018 03:03
[2018-01-18] MEDS ORDERED: LIDO:MAALOX 1:1 20 ML SINGLE DOSE. PO ONE (03:15)
== END 2018-01-18 03:12 | disposition home or self-care (01) ==
LOC: ER 02:36
DX: R19.8 Other specified symptoms and signs involving the digestive system and abdomen (principal); F31.9 Bipolar disorder, unspecified; E11.9 Type 2 diabetes mellitus without complications; E78.00 Pure hypercholesterolemia, unspecified; Z88.8 Allergy status to other drugs, medicaments and biological substances
CPT/HCPCS: 99283

== ENCOUNTER → 2018-02-04 | Day surgery (SDC) | payer MEDICARE ==
[~2018-02-04] MED LIST changes: +IV RINGERS,LACTATED 1000ML 1,000 ML IV SCH; +PROPOFOL 20 ML IV ONE; +SUCR1ORA5 PO
[2018-02-04 13:05] VITALS: BP 109/59
== END | disposition home or self-care (01) ==
LOC: ENDOS 11:19
PROVIDERS: ATTEND Internal Medicine Gastroenterology
DX: K22.2 Esophageal obstruction (principal); K29.50 Unspecified chronic gastritis without bleeding; Z86.010 Personal history of colon polyps; F32.9 Major depressive disorder, single episode, unspecified; E11.9 Type 2 diabetes mellitus without complications; K21.9 Gastro-esophageal reflux disease without esophagitis; I10 Essential (primary) hypertension; Z82.3 Family history of stroke; Z83.3 Family history of diabetes mellitus; Z82.49 Family history of ischemic heart disease and other diseases of the circulatory system; Z80.0 Family history of malignant neoplasm of digestive organs; Z87.891 Personal history of nicotine dependence; Z79.899 Other long term (current) drug therapy; Z79.84 Long term (current) use of oral hypoglycemic drugs; Z88.8 Allergy status to other drugs, medicaments and biological substances
CPT/HCPCS: 43235; 43450; J2704